=== PATIENT | female | born 1960 | race Caucasian/White ===

== ENCOUNTER 2021-03-09 10:42 | Inpatient (IN) | payer BC ==
[~2021-03-09] VITALS: Ht 167.6 cm; Wt 74.7 kg
[2021-04-06] VITALS (10 sets, daily range): BP systolic 103–129; BP diastolic 58–80; PULSE 66–79; TEMP 97.3–98.3
[2021-04-06] MEDS ORDERED: ULTRAM 50MG TAB50 MG PO (12:48)
[2021-04-06] MEDS ORDERED: MOBIC 7.5MG7.5 MG PO (12:49)
[2021-04-06] MEDS ORDERED: DITROPAN XL10 MG PO (12:49)
[2021-04-06] MEDS ORDERED: KLOR-CON SPRIN10 MEQ PO (12:50)
[2021-04-06] MEDS ORDERED: HYGROTON 2525 MG/TAB PO (12:50)
[2021-04-06] MEDS ORDERED: PRINIVIL10 MG PO (12:51)
[2021-04-06] MEDS ORDERED: LIPITOR 10MG10 MG PO (12:51)
[2021-04-06] MEDS ORDERED: VITAMIN D250 MCG PO (12:51)
[2021-04-06 13:16] LABS: HEMOGLOBIN 14.3 g/dl (12.5-16.0)
[2021-04-06] MEDS ORDERED: NORCO 325 MG-51 TAB PO (16:49)
[2021-04-06] MEDS ORDERED: COLACE 100100 MG/CAP PO (16:49)
--- NOTE | 2021-04-06 17:25 | NUR ---
returned to room per bed from PACU, awake and alert but drowsy, IV infusign per dial-a-flow at 125ml/hr, on room air and O2 sat 94%, abdomen with 5 robotic sites that are CD&I, emmie drain site with gauze and tegaderm and CD&I, SCDs on bilaterally, jones cath patent draining clear yellow urine, full assessment completed, see interventions for further info, family at bedside
[2021-04-06 17:28] LABS: BASO # 0.1 (0.0-0.2); BASO % 0.4 % (0.0-2.0); EOS # 0.1 (0.0-0.7); EOS % 0.4 % (0-4.0); GRAN # 10.3 (1.4-6.5); GRAN % 85.4 % (42.2-75.2); HEMATOCRIT 41.7 % (37.0-47.0); HEMOGLOBIN 13.8 g/dl (12.5-16.0); LYMPH # 1.3 (1.2-3.4); LYMPH % 10.3 % (20.0-51.0); MEAN CELL VOLUME 87 fl (80.0-100.0); MEAN CORPUSCULAR HEMOGLOBIN 29 pg (27.0-31.0); MEAN CORPUSCULAR HGB CONC 33 g/dl (33.0-37.0); MEAN PLATELET VOLUME 10.5 fl (7.4-10.4); MONO # 0.4 (0.1-0.6); MONO % 3.1 % (1.7-9.3); PLATELET COUNT 197 K/mm3 (130-400); REDCELL DISTRIBUTION WIDTH-CV 12.2 % (11.5-14.5)
--- NOTE | 2021-04-06 17:45 | NUR ---
provided water per her request and tolerates well,
[2021-04-06 17:50] LABS: CALCIUM 9.3 mg/dL (8.4-10.2); POTASSIUM 3.4 mmol/L (3.4-5.0)
--- NOTE | 2021-04-06 18:00 | NUR ---
awakens easily and visits with family
[2021-04-06 18:20] LABS: CREATININE, serum 0.86 (0.52-1.25)
--- NOTE | 2021-04-06 18:52 | NUR ---
bedside shift report given to MARINA Foster
--- NOTE | 2021-04-06 21:00 | NUR ---
PT IN BED. IS ALERT AND ORIENTED X3. HAS IVF TO LEFT HAND INFUSING WITHOUT PROBLEM. HAS OSBORNE CATHETER TO BSD WITH CLEAR YELLOW URINE. ONIEL DRAIN TO RT LOWER ABD, COMPRESSED. DENIES PAIN. ABDOMEN WITH 5 LAP SITES GLUED AND DRY. TAKING CLEAR LIQUIDS WITHOUT N/V.
[2021-04-07 00:45] VITALS: BP 112/63; PULSE 87; TEMP 97.5
--- NOTE | 2021-04-07 01:30 | NUR ---
PT RESTING IN BED. OSBORNE WITH GOOD URINE OUTPUT. TAKES SCHEDULED ES TYLENOL WITHOUT PROBLEM, REPORTS PAIN MINIMAL.
[2021-04-07 03:14] VITALS: BP 114/64; PULSE 65; TEMP 98.1
[2021-04-07 07:07] LABS: HEMOGLOBIN 12.4 g/dl (12.5-16.0); MEAN CELL VOLUME 86 fl (80.0-100.0); MEAN CORPUSCULAR HEMOGLOBIN 29 pg (27.0-31.0); MEAN CORPUSCULAR HGB CONC 34 g/dl (33.0-37.0); MEAN PLATELET VOLUME 10.8 fl (7.4-10.4); PLATELET COUNT 208 K/mm3 (130-400); RED BLOOD COUNT 4.28 M/mm3 (4.10-5.30); REDCELL DISTRIBUTION WIDTH-CV 12.3 % (11.5-14.5)
[2021-04-07 07:09] LABS: HEMATOCRIT 36.7 % (37.0-47.0)
[2021-04-07 07:12] LABS: CALCIUM 8.9 mg/dL (8.4-10.2); CREATININE, serum 0.94 (0.52-1.25); POTASSIUM 3.4 mmol/L (3.4-5.0)
[2021-04-07 07:49] LABS: BAND 4 % (0-10); LYMPHOCYTE 5 % (20.0-51.0); NEUTROPHILS 88 % (42.0-75.2); PLATELET ESTIMATE NORMAL (NORMAL)
[2021-04-07 07:51] VITALS: BP 116/63; PULSE 63; TEMP 98.2
[2021-04-07 07:55] VITALS: BP 90/56; PULSE 64; TEMP 98.1
--- NOTE | 2021-04-07 09:35 | NUR ---
CHRISTIAN met with the patient and her son, Shane (ph#[phone]), to discuss discharge plan. The patient lives alone in [place]. Shane lives in [place]. She reports independence with ADLs and does not have any DME. The patient's PCP is Dr. Jess Rojo and she receives her medications from [facility]. She reports no difficulties obtaining her meds. The patient does not have a DPOA-HC in EMR, but she states that she does have one completed and that she gave her DPOA-HC and Living Will to admissions yesterday. She reports that admissions told her they would bring it down to medical records. The patient states that her DPOA-HC is her ex-, Alphonse Calzada (ph#[phone]), her son, Shane, and daughter, Nina Aquino. The patient plans to return home upon discharge. She states that her daughter, Nina, will be staying with her until next Monday. No additional needs at this time. *Discharge plan: home with family support*
--- NOTE | 2021-04-07 10:00 | NUR ---
Patient alert and oriented, answers questions appropriately. See assessment. Abdomen soft, non tender, non distended. Bowel sounds active x4 quads. +Flatus. Lap sites to abdomen with edges well approximated, no redness or drainage noted. ONIEL drain in place to LLQ, compressed. Small amount sersanguinous drainage in ONIEL drain. Arzola catheter in place and draining clear yellow urine. Post op exercises reviewed with patient. No c/o at this time.
--- NOTE | 2021-04-07 11:40 | NUR ---
First visit from the horticultural services supervisor. No needs right now.
[2021-04-07 12:00] VITALS: BP 134/57; PULSE 60; TEMP 97.9
--- NOTE | 2021-04-07 12:41 | NUR ---
Arzola catheter discontinued per Drs order at 1215.
[2021-04-07 16:00] VITALS: BP 117/71; PULSE 58; TEMP 97.9
--- NOTE | 2021-04-07 17:58 | NUR ---
ONIEL drain discontinued per Drs order at 1730.
--- NOTE | 2021-04-07 19:47 | NUR ---
Discharge instructions reviewed with patient and spouse, verbalized understanding. Discharged via wheelchair to auto/home with spouse at 1940.
== END 2021-04-07 17:40 | disposition home or self-care (01) | DRG 658 ==
LOC: SURG 04-06 12:05
PROVIDERS: Registered Nurse; ADMIT Urology
PROC: 8E0W4CZ Robotic Assisted Procedure of Trunk Region, Percutaneous Endoscopic Approach (ICD-10-PCS; 2021-04-06)
PROC: 0TB14ZZ Excision of Left Kidney, Percutaneous Endoscopic Approach (ICD-10-PCS; principal; 2021-04-06 13:45)
DX: C64.2 Malignant neoplasm of left kidney, except renal pelvis (principal); Z20.828 Contact with and (suspected) exposure to other viral communicable diseases; E55.9 Vitamin D deficiency, unspecified; E66.3 Overweight; G47.00 Insomnia, unspecified; I10 Essential (primary) hypertension; E78.5 Hyperlipidemia, unspecified; F40.240 Claustrophobia; Z90.711 Acquired absence of uterus with remaining cervical stump; Z90.722 Acquired absence of ovaries, bilateral
CPT/HCPCS: A4314; J0690; J1100; J1885; J2250; J2405; J3010; J7120